=== PATIENT | male | born 1945 | race Caucasian/White ===

== ENCOUNTER 2017-02-04 09:53 | Outpatient (RCR) | payer MEDICARE ==
[2015-05-25 14:22] VITALS: BP 148/85
[~2017-02-04 09:53] MED LIST: ANTIVERT 12.512.5 MG PO; BENICAR HCT 12.1 TAB PO; DOXYCYCLINE 10100 MG PO; NISOLDIPINE17 MG PO; PREDNISONE20 M1 PO; PRILOSEC 20MG20 MG PO; SYNTHROID0.137 MG PO; SYNTHROID0.175 MG PO; TEKTURNA HCT PO; ZOCOR 40MG40 MG PO
== END 2017-05-05 | disposition home or self-care (01) ==
LOC: PT
DX: M75.102 Unspecified rotator cuff tear or rupture of left shoulder, not specified as traumatic (principal)

== ENCOUNTER → 2017-04-04 | Outpatient (CLI) | payer MEDICARE ==
[2017-04-04 16:27] VITALS: BP 155/83
== END ==
LOC: AMSURD 16:20
DX: I49.9 Cardiac arrhythmia, unspecified (principal)

== ENCOUNTER → 2017-04-08 | Outpatient (CLI) | payer MEDICARE ==
[2017-04-04 16:27] VITALS: BP 155/83
== END ==
LOC: LAB 09:33
DX: I49.9 Cardiac arrhythmia, unspecified (principal)

== ENCOUNTER → 2017-05-09 | Outpatient (CLI) | payer MEDICARE ==
[2017-04-04 16:27] VITALS: BP 155/83
== END ==
LOC: CARDREHAB 08:42
DX: I47.2 Ventricular tachycardia (principal); I49.8 Other specified cardiac arrhythmias; E78.5 Hyperlipidemia, unspecified; I10 Essential (primary) hypertension; Z82.49 Family history of ischemic heart disease and other diseases of the circulatory system
CPT/HCPCS: A9500

== ENCOUNTER → 2017-05-14 | Outpatient (CLI) | payer MEDICARE ==
[2017-04-04 16:27] VITALS: BP 155/83
== END ==
LOC: RAD 12:00
DX: I47.2 Ventricular tachycardia (principal); I49.8 Other specified cardiac arrhythmias; R94.31 Abnormal electrocardiogram [ECG] [EKG]

== ENCOUNTER → 2017-06-23 | Outpatient (CLI) | payer MEDICARE ==
[2017-04-04 16:27] VITALS: BP 155/83
== END ==
LOC: LAB 09:29
DX: E03.4 Atrophy of thyroid (acquired) (principal); Z12.5 Encounter for screening for malignant neoplasm of prostate

== ENCOUNTER → 2017-08-05 | Outpatient (CLI) | payer MEDICARE ==
[2017-04-04 16:27] VITALS: BP 155/83
== END ==
LOC: LAB 11:21
DX: E03.9 Hypothyroidism, unspecified (principal); E03.4 Atrophy of thyroid (acquired)

== ENCOUNTER → 2017-08-06 | Outpatient (CLI) | payer MEDICARE ==
[2017-04-04 16:27] VITALS: BP 155/83
== END ==
LOC: LAB 14:18
DX: D68.59 Other primary thrombophilia (principal)

== ENCOUNTER 2017-09-15 15:24 | Emergency (ER) | payer MEDICARE ==
[~2017-09-15] VITALS: Ht 177.8 cm; Wt 93.1 kg
[2017-09-15] MEDS ORDERED: BENAZEPRIL HCL-1 TA3 PO (15:43)
[2017-09-15 17:39] VITALS: BP 166/106
== END 2017-09-15 17:46 | disposition home or self-care (01) ==
LOC: ED 15:24
DX: R51 Headache (principal); I10 Essential (primary) hypertension; E89.0 Postprocedural hypothyroidism

== ENCOUNTER 2018-01-04 00:20 | Emergency (ER) | payer MEDICARE ==
[~2018-01-04] VITALS: Ht 180.3 cm; Wt 93.2 kg
[~2018-01-04 00:20] MED LIST changes: +BENAZEPRIL HCL-1 TA3 PO
[2018-01-04] MEDS ORDERED: PRAVACHOL 20MG20 MG PO (00:31)
[2018-01-04 01:53] LABS: EOS # 0.3 (0.04-0.40); EOS % 3.9 % (0.0-4.0); HEMATOCRIT 42.1 % (42.0-52.0); HEMOGLOBIN 14.8 g/dL (13.5-18.0); LYMPH# 2.4 (1.50-4.00); MEAN CELL VOLUME 84 fl (78-100); MEAN CORPUSCULAR HEMOGLOBIN 29 pg (27-31); MEAN CORPUSCULAR HGB CONC 35 g/dL (33-37); MONO # 0.9 (0.20-0.80); NEU # 4.3 (1.40-6.50); PLATELET COUNT 211 K/mm3 (130-400); RED BLOOD COUNT 5.04 M/mm3 (4.20-5.60); RED CELL DISTRIBUTION WIDTH 13.5 % (11.5-14.5)
[2018-01-04] MEDS ORDERED: GUAIFEN-CODEIN118 ML PO (02:16)
[2018-01-04] MEDS ORDERED: PREDNISONE20 M1 PO (02:16)
[2018-01-04 03:00] VITALS: BP 124/74
== END 2018-01-04 03:00 | disposition home or self-care (01) ==
LOC: ED 00:20
PROVIDERS: Family Medicine
DX: J45.909 Unspecified asthma, uncomplicated (principal); Z86.718 Personal history of other venous thrombosis and embolism; I51.9 Heart disease, unspecified; Z85.850 Personal history of malignant neoplasm of thyroid; E89.0 Postprocedural hypothyroidism

== ENCOUNTER → 2018-03-10 | Outpatient (CLI) | payer MEDICARE ==
[~2018-03-10] MED LIST changes: +GUAIFEN-CODEIN118 ML PO; +PRAVACHOL 20MG20 MG PO
[2018-03-10 14:33] LABS: URINE APPEARANCE HAZY; URINE COLOR YELLOW
[2018-03-10 14:34] LABS: URINE BILIRUBIN NEGATIVE (NEGATIVE); URINE BLOOD TRACE (NEGATIVE); URINE GLUCOSE NEGATIVE (NEGATIVE); URINE KETONE NEGATIVE (NEGATIVE); URINE LEUKOCYTE ESTERASE 2+ (NEGATIVE); URINE NITRATE NEGATIVE (NEGATIVE); URINE PROTEIN(semi-quant) TRACE mg/dL (NEGATIVE); URINE UROBILINOGEN NORMAL (NORMAL)
[2018-03-10 14:35] LABS: URINE WBC >50 /hpf (0-3)
[2018-03-10 14:36] LABS: URINE MUCUS PRESENT (NOT PRESENT)
== END ==
LOC: LAB 13:13
PROVIDERS: Internal Medicine
DX: R31.9 Hematuria, unspecified (principal)

== ENCOUNTER → 2018-04-07 | Outpatient (CLI) | payer MEDICARE ==
[2018-04-07 16:00] LABS: ALBUMIN 4.3 g/dL (3.5-5.0); BUN/CREATININE RATIO 14.6 (6.0-26.0); CALCIUM 9.2 mg/dL (8.4-10.2); POTASSIUM 3.7 mmol/L (3.6-5.0); TOTAL BILIRUBIN 0.9 mg/dL (0.2-1.3); TOTAL PROTEIN 7.8 g/dL (6.3-8.2)
== END ==
LOC: LAB 15:36
PROVIDERS: Internal Medicine
DX: H81.49 Vertigo of central origin, unspecified ear (principal)

== ENCOUNTER → 2018-04-08 | Outpatient (CLI) | payer MEDICARE | LOC: RAD 06:55 | DX: H81.49 Vertigo of central origin, unspecified ear (principal) | CPT/HCPCS: A9585 ==

== ENCOUNTER → 2018-07-21 | Day surgery (SDC) | payer MEDICARE | LOC: MSO 13:07 | DX: Z12.11 Encounter for screening for malignant neoplasm of colon (principal); I10 Essential (primary) hypertension; Z79.899 Other long term (current) drug therapy; K21.9 Gastro-esophageal reflux disease without esophagitis; E03.9 Hypothyroidism, unspecified | CPT/HCPCS: 00812; J2704; J7120 ==

== ENCOUNTER → 2019-03-01 | Outpatient (CLI) | payer MEDICARE | LOC: RAD 16:46 | DX: S89.92XA Unspecified injury of left lower leg, initial encounter (principal); R22.42 Localized swelling, mass and lump, left lower limb ==

== ENCOUNTER → 2019-04-06 | Outpatient (CLI) | payer MEDICARE | LOC: LAB 15:56 | DX: E89.0 Postprocedural hypothyroidism (principal); Z85.850 Personal history of malignant neoplasm of thyroid ==

== ENCOUNTER → 2019-06-16 | Outpatient (CLI) | payer MEDICARE | LOC: LAB 09:11 | DX: E89.0 Postprocedural hypothyroidism (principal) ==

== ENCOUNTER → 2020-01-05 | Outpatient (CLI) | payer MEDICARE ==
[2020-01-05 08:41] LABS: ALBUMIN 4.4 g/dL (3.4-4.8); POTASSIUM 3.1 mmol/L (3.5-5.1)
[2020-01-05 08:43] LABS: CALCIUM 8.9 mg/dL (8.3-10.5)
[2020-01-05 08:44] LABS: TOTAL PROTEIN 7.5 g/dL (6.2-8.1)
[2020-01-05 08:46] LABS: TOTAL BILIRUBIN 1.1 mg/dL (0.2-1.2)
[2020-01-05 08:50] LABS: MAGNESIUM 1.95 mg/dL (1.60-2.60)
[2020-01-05 09:08] LABS: HEMATOCRIT 43.2 % (42.0-52.0); MEAN CELL VOLUME 85 fl (78-100); MEAN CORPUSCULAR HEMOGLOBIN 29 pg (27-31); MEAN CORPUSCULAR HGB CONC 35 g/dL (33-37); MEAN PLATELET VOLUME 8.8 fl (7.4-10.4); PLATELET COUNT 257 K/mm3 (130-400); RED BLOOD COUNT 5.11 M/mm3 (4.20-5.60); RED CELL DISTRIBUTION WIDTH 13.7 % (11.5-14.5); WHITE BLOOD COUNT 4.7 K/mm3 (4.8-10.8)
[2020-01-05 10:41] LABS: ERYTHROCYTE SEDIMENTATION RATE 7 mm/hr (0-20)
[2020-01-05 10:46] LABS: LYMPHOCYTE 30 % (20-51); MONOCYTE 10 % (3-10); NEUTROPHILS 48 % (42-75)
[2020-01-05 17:10] LABS: URINE APPEARANCE CLEAR; URINE BILIRUBIN NEGATIVE (NEGATIVE); URINE BLOOD NEGATIVE (NEGATIVE); URINE COLOR YELLOW; URINE GLUCOSE NEGATIVE (NEGATIVE); URINE KETONE NEGATIVE (NEGATIVE); URINE LEUKOCYTE ESTERASE NEGATIVE (NEGATIVE); URINE NITRATE NEGATIVE (NEGATIVE); URINE PROTEIN(semi-quant) TRACE mg/dL (NEGATIVE); URINE UROBILINOGEN NORMAL (NORMAL); URINE WBC 0-1 /hpf (0-3)
== END ==
LOC: LAB 08:09
PROVIDERS: Internal Medicine
DX: Z00.00 Encounter for general adult medical examination without abnormal findings (principal); Z12.5 Encounter for screening for malignant neoplasm of prostate; Z12.11 Encounter for screening for malignant neoplasm of colon; C73 Malignant neoplasm of thyroid gland; E78.5 Hyperlipidemia, unspecified; N52.9 Male erectile dysfunction, unspecified; I10 Essential (primary) hypertension; I47.2 Ventricular tachycardia; R20.2 Paresthesia of skin

== ENCOUNTER → 2020-01-31 | Outpatient (CLI) | payer MEDICARE ==
[2020-01-31 16:38] LABS: ALBUMIN 4.3 g/dL (3.4-4.8); POTASSIUM 3.6 mmol/L (3.5-5.1)
[2020-01-31 16:40] LABS: CALCIUM 9.6 mg/dL (8.3-10.5)
[2020-01-31 16:41] LABS: TOTAL PROTEIN 7.4 g/dL (6.2-8.1)
[2020-01-31 16:43] LABS: TOTAL BILIRUBIN 0.7 mg/dL (0.2-1.2)
[2020-01-31 16:47] LABS: MAGNESIUM 2.04 mg/dL (1.60-2.60)
== END ==
LOC: LAB 16:09
PROVIDERS: Internal Medicine
DX: I10 Essential (primary) hypertension (principal); R20.2 Paresthesia of skin

== ENCOUNTER → 2020-05-19 | Outpatient (CLI) | payer MEDICARE ==
[2020-05-19 11:03] LABS: ALBUMIN 4.1 g/dL (3.4-4.8); POTASSIUM 3.1 mmol/L (3.5-5.1)
[2020-05-19 11:04] LABS: CALCIUM 9.2 mg/dL (8.3-10.5)
[2020-05-19 11:05] LABS: TOTAL PROTEIN 7.1 g/dL (6.2-8.1)
[2020-05-19 11:12] LABS: MAGNESIUM 1.87 mg/dL (1.60-2.60)
== END ==
LOC: LAB 09:05
PROVIDERS: Internal Medicine
DX: Z12.5 Encounter for screening for malignant neoplasm of prostate (principal); E03.9 Hypothyroidism, unspecified; I10 Essential (primary) hypertension; E78.5 Hyperlipidemia, unspecified; C73 Malignant neoplasm of thyroid gland; I47.2 Ventricular tachycardia

== ENCOUNTER → 2021-01-09 | Outpatient (CLI) | payer MEDICARE | LOC: RAD 08:18 | DX: K80.10 Calculus of gallbladder with chronic cholecystitis without obstruction (principal) ==

== ENCOUNTER → 2021-01-12 | Outpatient (CLI) | payer MEDICARE ==
[2021-01-12 10:52] LABS: POTASSIUM 4.4 mmol/L (3.5-5.1)
[2021-01-12 10:53] LABS: CALCIUM 9.2 mg/dL (8.3-10.5)
[2021-01-12 10:54] LABS: TOTAL PROTEIN 6.9 g/dL (6.2-8.1)
[2021-01-12 10:56] LABS: TOTAL BILIRUBIN 0.6 mg/dL (0.2-1.2)
[2021-01-12 11:00] LABS: MAGNESIUM 2.05 mg/dL (1.60-2.60)
== END ==
LOC: LAB 10:28
PROVIDERS: Internal Medicine
DX: E87.6 Hypokalemia (principal)

== ENCOUNTER → 2021-08-16 | Outpatient (CLI) | payer MEDICARE ==
[~2021-08-16] MED LIST changes: +BACTRIM DS TAB1 EACH PO; +BENAZEPRIL10 MG PO; +LEVOTHYROXINE125 MCG PO; +POTASSIUM CHLO20 ME4 PO; +SIMVASTATIN40 M1 PO
[2021-08-16 15:20] LABS: BASO # 0.03 (0.02-0.10); EOS # 0.64 (0.04-0.40); EOS % 10.8 % (0.0-4.0); HEMATOCRIT 38.6 % (42.0-52.0); HEMOGLOBIN 13.2 g/dL (13.5-18.0); LYMPH# 1.86 (1.50-4.00); MEAN CELL VOLUME 87 fl (78-100); MEAN CORPUSCULAR HEMOGLOBIN 30 pg (27-31); MEAN CORPUSCULAR HGB CONC 34 g/dL (33-37); MEAN PLATELET VOLUME 8.9 fl (7.4-10.4); MONO # 0.47 (0.20-0.80); PLATELET COUNT 216 K/mm3 (130-400); RED BLOOD COUNT 4.42 M/mm3 (4.20-5.60); RED CELL DISTRIBUTION WIDTH 13.1 % (11.5-14.5); WHITE BLOOD COUNT 5.9 K/mm3 (4.8-10.8)
[2021-08-16 15:33] LABS: POTASSIUM 3.9 mmol/L (3.5-5.1)
[2021-08-16 15:34] LABS: ALBUMIN 3.8 g/dL (3.4-4.8)
[2021-08-16 15:35] LABS: CALCIUM 9.4 mg/dL (8.3-10.5)
[2021-08-16 15:36] LABS: TOTAL PROTEIN 6.9 g/dL (6.2-8.1)
[2021-08-16 15:38] LABS: TOTAL BILIRUBIN 0.7 mg/dL (0.2-1.2)
[2021-08-16 15:42] LABS: MAGNESIUM 1.95 mg/dL (1.60-2.60)
[2021-08-16 16:38] LABS: ERYTHROCYTE SEDIMENTATION RATE 15 mm/hr (0-20)
== END ==
LOC: LAB 14:32
PROVIDERS: Internal Medicine
DX: Z12.11 Encounter for screening for malignant neoplasm of colon (principal); Z12.5 Encounter for screening for malignant neoplasm of prostate; I10 Essential (primary) hypertension; I47.2 Ventricular tachycardia; E89.0 Postprocedural hypothyroidism; E78.2 Mixed hyperlipidemia; K90.9 Intestinal malabsorption, unspecified

== ENCOUNTER → 2021-08-23 | Outpatient (CLI) | payer MEDICARE | LOC: LAB 09:47 | DX: Z12.11 Encounter for screening for malignant neoplasm of colon (principal) ==

== ENCOUNTER → 2021-08-29 | Outpatient (CLI) | payer MEDICARE ==
[2021-08-29 13:37] LABS: BASO # 0.03 (0.02-0.10); EOS # 0.53 (0.04-0.40); EOS % 7.6 % (0.0-4.0); HEMATOCRIT 41.5 % (42.0-52.0); HEMOGLOBIN 14.3 g/dL (13.5-18.0); LYMPH# 1.93 (1.50-4.00); MEAN CELL VOLUME 87 fl (78-100); MEAN CORPUSCULAR HEMOGLOBIN 30 pg (27-31); MEAN CORPUSCULAR HGB CONC 35 g/dL (33-37); MEAN PLATELET VOLUME 8.7 fl (7.4-10.4); NEU # 3.85 (1.40-6.50); PLATELET COUNT 217 K/mm3 (130-400); RED BLOOD COUNT 4.79 M/mm3 (4.20-5.60); RED CELL DISTRIBUTION WIDTH 12.9 % (11.5-14.5)
== END ==
LOC: LAB 13:23
PROVIDERS: Internal Medicine
DX: D64.9 Anemia, unspecified (principal)

== ENCOUNTER 2021-09-08 14:49 | Emergency (ER) | payer MEDICARE ==
[~2021-09-08] VITALS: Ht 177.8 cm; Wt 93.2 kg
[~2021-09-08 14:49] MED LIST changes: -BACTRIM DS TAB1 EACH PO; -BENAZEPRIL10 MG PO; -LEVOTHYROXINE125 MCG PO; -POTASSIUM CHLO20 ME4 PO; -SIMVASTATIN40 M1 PO
[2021-09-08] MEDS ORDERED: BENAZEPRIL10 MG PO (14:54)
[2021-09-08] MEDS ORDERED: SIMVASTATIN40 M1 PO (14:56)
[2021-09-08] MEDS ORDERED: POTASSIUM CHLO20 ME4 PO (15:06)
[2021-09-08] MEDS ORDERED: LEVOTHYROXINE125 MCG PO (15:06)
[2021-09-08 15:39] LABS: URINE APPEARANCE CLOUDY; URINE COLOR YELLOW
[2021-09-08 15:40] LABS: URINE BILIRUBIN NEGATIVE (NEGATIVE); URINE BLOOD 250 ery/uL (NEGATIVE); URINE GLUCOSE NEGATIVE (NEGATIVE); URINE KETONE NEGATIVE (NEGATIVE); URINE LEUKOCYTE ESTERASE 1+ (NEGATIVE); URINE NITRATE NEGATIVE (NEGATIVE); URINE PROTEIN(semi-quant) 2+ mg/dL (NEGATIVE); URINE UROBILINOGEN NORMAL (NORMAL); URINE WBC 16-30 /hpf (0-3)
[2021-09-08] MEDS ORDERED: BACTRIM DS TAB1 EACH PO (15:49)
[2021-09-08 16:13] VITALS: BP 119/77
== END 2021-09-08 16:13 | disposition home or self-care (01) ==
LOC: ED 14:49
PROVIDERS: Physician Assistant
DX: N30.91 Cystitis, unspecified with hematuria (principal); I10 Essential (primary) hypertension; E78.5 Hyperlipidemia, unspecified; Z79.899 Other long term (current) drug therapy

== ENCOUNTER → 2021-10-23 | Outpatient (CLI) | payer MEDICARE ==
[~2021-10-23] MED LIST changes: +BACTRIM DS TAB1 EACH PO; +BENAZEPRIL10 MG PO; +LEVOTHYROXINE125 MCG PO; +POTASSIUM CHLO20 ME4 PO; +SIMVASTATIN40 M1 PO
== END ==
LOC: LAB 12:05
DX: Z20.822 Contact with and (suspected) exposure to COVID-19 (principal)

== ENCOUNTER → 2022-04-18 | Outpatient (CLI) | payer MEDICARE | LOC: LAB 09:11 | DX: Z20.822 Contact with and (suspected) exposure to COVID-19 (principal) ==

== ENCOUNTER → 2022-05-22 | Outpatient (CLI) | payer MEDICARE ==
[2022-05-22 16:36] LABS: BASO # 0.04 K/mm3 (0.02-0.10); EOS # 0.48 K/mm3 (0.04-0.40); EOS % 8.6 % (0.0-4.0); HEMATOCRIT 39.8 % (42.0-52.0); HEMOGLOBIN 13.6 g/dL (13.5-18.0); LYMPH# 1.72 K/mm3 (1.50-4.00); MEAN CELL VOLUME 86 fl (78-100); MEAN CORPUSCULAR HEMOGLOBIN 29 pg (27-31); MEAN CORPUSCULAR HGB CONC 34 g/dL (33-37); MEAN PLATELET VOLUME 8.9 fl (7.4-10.4); MONO # 0.55 K/mm3 (0.20-0.80); NEU # 2.78 K/mm3 (1.40-6.50); PLATELET COUNT 208 K/mm3 (130-400); RED BLOOD COUNT 4.64 M/mm3 (4.20-5.60); RED CELL DISTRIBUTION WIDTH 13.2 % (11.5-14.5); WHITE BLOOD COUNT 5.6 K/mm3 (4.8-10.8)
[2022-05-22 16:46] LABS: POTASSIUM 4.4 mmol/L (3.5-5.1)
[2022-05-22 16:47] LABS: ALBUMIN 4.1 g/dL (3.4-4.8)
[2022-05-22 16:48] LABS: CALCIUM 9.3 mg/dL (8.3-10.5)
[2022-05-22 16:49] LABS: TOTAL PROTEIN 7.1 g/dL (6.2-8.1)
[2022-05-22 16:51] LABS: TOTAL BILIRUBIN 0.7 mg/dL (0.2-1.2)
[2022-05-22 16:56] LABS: MAGNESIUM 1.89 mg/dL (1.60-2.60)
[2022-05-22 18:29] LABS: ERYTHROCYTE SEDIMENTATION RATE 24 mm/hr (0-20)
== END ==
LOC: LAB 16:19
PROVIDERS: Internal Medicine
DX: Z12.5 Encounter for screening for malignant neoplasm of prostate (principal); C73 Malignant neoplasm of thyroid gland; E78.2 Mixed hyperlipidemia; E89.0 Postprocedural hypothyroidism; K90.9 Intestinal malabsorption, unspecified; I10 Essential (primary) hypertension; I49.1 Atrial premature depolarization; I47.2 Ventricular tachycardia

== ENCOUNTER → 2022-12-04 | Outpatient (CLI) | payer MEDICARE ==
[2022-12-04 08:54] LABS: BASO # 0.03 K/mm3 (0.02-0.10); EOS # 0.55 K/mm3 (0.04-0.40); EOS % 9.9 % (0.0-4.0); HEMATOCRIT 43.9 % (42.0-52.0); HEMOGLOBIN 15.5 g/dL (13.5-18.0); LYMPH# 1.73 K/mm3 (1.50-4.00); MEAN CELL VOLUME 83 fl (78-100); MEAN CORPUSCULAR HEMOGLOBIN 29 pg (27-31); MEAN CORPUSCULAR HGB CONC 35 g/dL (33-37); MEAN PLATELET VOLUME 8.6 fl (7.4-10.4); MONO # 0.45 K/mm3 (0.20-0.80); NEU # 2.76 K/mm3 (1.40-6.50); PLATELET COUNT 215 K/mm3 (130-400); RED BLOOD COUNT 5.29 M/mm3 (4.20-5.60); RED CELL DISTRIBUTION WIDTH 12.9 % (11.5-14.5); WHITE BLOOD COUNT 5.5 K/mm3 (4.8-10.8)
[2022-12-04 08:58] LABS: CALCIUM 9.2 mg/dL (8.3-10.5)
[2022-12-04 08:59] LABS: TOTAL PROTEIN 7.1 g/dL (6.2-8.1)
[2022-12-04 09:06] LABS: MAGNESIUM 2.17 mg/dL (1.60-2.60)
== END ==
LOC: LAB 08:38
PROVIDERS: Internal Medicine
DX: I10 Essential (primary) hypertension (principal); C73 Malignant neoplasm of thyroid gland; K90.9 Intestinal malabsorption, unspecified; E78.2 Mixed hyperlipidemia; E89.0 Postprocedural hypothyroidism; E55.9 Vitamin D deficiency, unspecified

== ENCOUNTER 2023-07-02 13:58 | Outpatient (RCR) | payer MEDICARE | END 2023-07-31 | disposition home or self-care (01) | LOC: PT | DX: M50.30 Other cervical disc degeneration, unspecified cervical region (principal) ==

== ENCOUNTER → 2023-11-11 | Outpatient (CLI) | payer MEDICARE ==
[2023-11-11 14:22] LABS: CALCIUM 9.3 mg/dL (8.3-10.5)
== END ==
LOC: LAB 13:58
DX: I10 Essential (primary) hypertension (principal)

== ENCOUNTER → 2024-03-11 | Outpatient (CLI) | payer MEDICARE ==
[2024-03-11 12:03] LABS: CALCIUM 9.4 mg/dL (8.3-10.5)
== END ==
LOC: LAB 11:17
PROVIDERS: Nurse Practitioner
DX: E87.6 Hypokalemia (principal)

== ENCOUNTER → 2024-04-30 | Outpatient (CLI) | payer MEDICARE ==
[2024-06-19 10:44] LABS: CALCIUM 9.2 mg/dL (8.3-10.5)
== END ==
LOC: LAB 10:33
PROVIDERS: Nurse Practitioner
DX: E87.6 Hypokalemia (principal)

== ENCOUNTER → 2024-07-21 | Outpatient (CLI) | payer MEDICARE ==
[2024-07-21 08:44] LABS: BASO # 0.03 K/mm3 (0.02-0.10); EOS # 0.58 K/mm3 (0.04-0.40); EOS % 10.8 % (0.0-4.0); HEMATOCRIT 44.6 % (42.0-52.0); HEMOGLOBIN 15.5 g/dL (13.5-18.0); LYMPH# 1.95 K/mm3 (1.50-4.00); MEAN CELL VOLUME 87 fl (78-100); MEAN CORPUSCULAR HEMOGLOBIN 30 pg (27-31); MEAN CORPUSCULAR HGB CONC 35 g/dL (33-37); MEAN PLATELET VOLUME 8.5 fl (7.4-10.4); MONO # 0.48 K/mm3 (0.20-0.80); NEU # 2.33 K/mm3 (1.40-6.50); PLATELET COUNT 215 K/mm3 (130-400); RED BLOOD COUNT 5.13 M/mm3 (4.20-5.60); RED CELL DISTRIBUTION WIDTH 13.2 % (11.5-14.5); WHITE BLOOD COUNT 5.4 K/mm3 (4.8-10.8)
[2024-07-21 08:52] LABS: ALBUMIN 4.1 g/dL (3.4-4.8)
[2024-07-21 08:53] LABS: CALCIUM 9.7 mg/dL (8.3-10.5)
[2024-07-21 08:54] LABS: TOTAL PROTEIN 7.2 g/dL (6.2-8.1)
[2024-07-21 09:01] LABS: MAGNESIUM 2.01 mg/dL (1.60-2.60)
[2024-07-22 00:37] LABS: TESTOSTERONE 593 ng/dL (221-716)
[2024-07-22 00:45] LABS: HEPATITIS C VIRUS ANTIBODY Negative (Nonreactiv)
== END ==
LOC: LAB 08:29
PROVIDERS: Internal Medicine
DX: Z12.5 Encounter for screening for malignant neoplasm of prostate (principal); Z11.59 Encounter for screening for other viral diseases; Z12.11 Encounter for screening for malignant neoplasm of colon; K90.9 Intestinal malabsorption, unspecified; E78.2 Mixed hyperlipidemia; I10 Essential (primary) hypertension; E89.0 Postprocedural hypothyroidism; F52.21 Male erectile disorder; R73.9 Hyperglycemia, unspecified

== ENCOUNTER → 2024-09-27 | Outpatient (CLI) | payer MEDICARE | LOC: LAB 10:17 | DX: E89.0 Postprocedural hypothyroidism (principal) ==

== ENCOUNTER → 2024-12-15 | Outpatient (CLI) | payer MEDICARE | LOC: RAD 09:32 | DX: M19.011 Primary osteoarthritis, right shoulder (principal) ==

== ENCOUNTER → 2024-12-15 | Outpatient (CLI) | payer MEDICARE | LOC: LAB 09:36 | DX: E89.0 Postprocedural hypothyroidism (principal) ==

== ENCOUNTER → 2024-12-17 | Outpatient (CLI) | payer MEDICARE | LOC: RAD 13:50 | DX: M75.121 Complete rotator cuff tear or rupture of right shoulder, not specified as traumatic (principal); Z98.890 Other specified postprocedural states ==

== ENCOUNTER → 2025-03-04 | Outpatient (CLI) | payer MEDICARE | LOC: RAD 10:53 | DX: M50.30 Other cervical disc degeneration, unspecified cervical region (principal); M48.02 Spinal stenosis, cervical region ==